=== PATIENT | female | born 1975 | race Caucasian/White ===

== ENCOUNTER 2018-01-05 21:20 | Emergency (ER) | payer MEDICAID ==
[2018-01-05] MEDS: METHYLPREDNISOLONE 125 MG INJ IM (23:56)
[2018-01-05] MEDS: ALBUTEROL 0.083% (NEB) 2.5 MG/3 ML AMP NEB (23:57)
[2018-01-05] MEDS: IPRATROPIUM (NEB) 0.5 MG/2.5 ML AMP NEB (23:57)
== END 2018-01-06 03:20 | disposition home or self-care (01) ==
LOC: FTE 01-06 03:20
DX: J20.9 Acute bronchitis, unspecified (principal); J45.901 Unspecified asthma with (acute) exacerbation; Z87.891 Personal history of nicotine dependence
CPT/HCPCS: 71045; 94644; 96372; 99284-25

== ENCOUNTER 2018-03-01 02:50 | Emergency (ER) | payer OTHER, MEDICAID ==
[2018-03-01] MEDS: HYDROCODONE/APAP (5/325) TAB PO (03:37)
[2018-03-01] MEDS: NEOMYC/POLYMYX/BACIT 30 GM OINT TOP (04:19)
== END 2018-03-01 05:24 | disposition home or self-care (01) ==
LOC: FTE 02:50
DX: S82.851A Displaced trimalleolar fracture of right lower leg, initial encounter for closed fracture (principal); J45.909 Unspecified asthma, uncomplicated; W18.39XA Other fall on same level, initial encounter; Y92.9 Unspecified place or not applicable
CPT/HCPCS: 29505; 73610-RT; 99283-25